=== PATIENT | female | born 1990 | race Caucasian/White ===

== ENCOUNTER → 2018-07-19 | Outpatient (CLI) | payer OTHER ==
[~2018-07-19] MED LIST: INUL1TAB; MODA200T6 PO; NEBI5TAB PO; PROM-110 PO; PROM12.556 PO; RIZA10TA24 PO
--- NOTE | 2018-07-19 15:48 | EKG ---
FACILITY: [facility] PATIENT NAME: ANTONETTE DAN : [id number] MR: [id number] V: [id number] EXAM DATE: ORDERING PHYSICIAN: SERVANDO ANGELES TECHNOLOGIST: LV Test Reason : EKG Blood Pressure : / mmHG Vent. Rate : 090 BPM Atrial Rate : 091 BPM P-R Int : 204 ms QRS Dur : 076 ms QT Int : 348 ms P-R-T Axes : 082 029 038 degrees QTc Int : 425 ms Normal sinus rhythm T wave abnormality, consider anterior ischemia Abnormal ECG No previous ECGs available Referred By: KARTHIK Confirmed By:
== END ==
LOC: RESP 15:20
PROVIDERS: ATTEND Internal Medicine
DX: Z02.9 Encounter for administrative examinations, unspecified (principal)